=== PATIENT | female | born 1980 | race African-American/Black ===

== ENCOUNTER → 2020-08-12 | Outpatient (CLI) | payer MEDICAID ==
[~2020-08-12] MED LIST: FERR-36 PO; IBUP-1027 PO
[2020-08-12 13:55] LABS: PROTHROMBIN TIME PATIENT 13.7 SEC (11.7-14.0)
[2020-08-12 14:00] LABS: ALBUMIN 3.8 g/dL (3.4-5.0); CALCIUM 8.7 mg/dL (8.5-10.1); CREATININE 1.1 mg/dL (0.6-1.0); GFR 66.2; TOTAL BILIRUBIN 0.9 mg/dL (0.2-1.0); TOTAL PROTEIN 7.5 g/dL (6.4-8.2)
[2020-08-12 14:02] LABS: BASO % 0 % (0-3); EOS # 0.1 x10^3/uL (0.0-0.7); EOS % 1 % (0-3); HEMOGLOBIN 10.5 g/dL (12.0-15.5); LYMPH % 26 % (24-48); MEAN CORPUSCULAR HEMOGLOBIN 21 pg (25-35); MEAN CORPUSCULAR HGB CONC 33 g/dL (31-37); MEAN CORPUSCULAR VOLUME 63 fL (79-100); MONO # 0.6 x10^3/uL (0.0-1.1); MONO % 7 % (0-9); NEUT # 5.1 x10^3/uL (1.8-7.7); NEUT % 66 % (31-73); PLATELET COUNT 395 x10^3/uL (140-400); RED BLOOD COUNT 5.08 x10^6/uL (3.50-5.40); RED CELL DISTRIBUTION WIDTH 18.1 % (11.5-14.5); WHITE BLOOD COUNT 7.8 x10^3/uL (4.0-11.0)
--- NOTE | 2020-08-12 14:04 | EKG ---
[facility] [address] [place] [address] Test Date: 2020-08-12 Test Time: 13:35:31 Pat Name: ANJEL PENA Department: Room: Gender: F Laundry Aid: GRACIELA : 1980 Requested By: LISA PELAEZ Order Number: [id number] Reading MD: Heriberto Ascencio Measurements Intervals [place] Rate: 56 P: 48 WI: 186 QRS: 0 QRSD: 64 T: 19 QT: 396 QTc: 384 Interpretive Statements SINUS RHYTHM LEFTWARD AXIS QRS(T) CONTOUR ABNORMALITY CONSISTENT WITH ANTEROSEPTAL INFARCT PROBABLY OLD ABNORMAL ECG RI6.02 No previous ECG available for comparison Electronically Signed On 08-15-2020 9:48:46 SLAG DUMPER by Heriberto Ascencio
[2020-08-12 15:36] LABS: ANISOCYTOSIS SLIGHT; HYPOCHROMIA MARKED; MICROCYTOSIS MARKED; PLT ESTIMATE ADEQUATE (ADEQUATE); POIKILOCYTOSIS SLIGHT; POLYCHROMASIA PRESENT
[2020-08-12 15:38] LABS: OVALOCYTES MOD; SCHISTOCYTES OCC
[2020-08-12 15:39] LABS: BIZZARE CELLS FEW
[2020-08-12 15:41] LABS: TARGET CELLS FEW
--- NOTE | 2020-08-12 16:05 | RAD ---
AP and Lateral Views of the Chest 08/12/2020 1:50 PM Indication: Reason: pre-op, hysterectomy / [facility] Instructions: / History: Comparison: None Findings: There is no focal consolidation or infiltrate identified. The cardiomediastinal silhouette is within normal limits. There is no evidence of pneumothorax or pleural effusion. No acute osseous a bnormalities are identified. Impression: No evidence of acute cardiopulmonary process. Electronically signed by: César Silva MD (08/12/2020 4:03 PM) [id number]
--- NOTE | 2020-08-15 10:55 | NUR ---
EKG was reviewed by Dr. Lorenzo, no further tests needed. Lab results and EKG faxed to Dr. Spence.
== END ==
LOC: SURGPAT 12:49
PROVIDERS: ATTEND Obstetrics & Gynecology
DX: Z01.812 Encounter for preprocedural laboratory examination (principal); D64.9 Anemia, unspecified; D56.9 Thalassemia, unspecified; Z88.2 Allergy status to sulfonamides; Z20.822 Contact with and (suspected) exposure to COVID-19
CPT/HCPCS: 71046; 80053; 85025; 85610; 85730; 93005; U0003